=== PATIENT | female | born 1995 | race Caucasian/White ===

== ENCOUNTER 2019-03-17 11:40 | Emergency (ER) | payer OTHER ==
[~2019-03-17] VITALS: Ht 157.5 cm; Wt 72.0 kg
[2019-03-17] MEDS ORDERED: ACETAMINOPHEN 500 MG TABLET ONE (12:06)
--- NOTE | 2019-03-17 12:08 | NUR ---
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
[2019-03-17] MEDS ORDERED: KETOROLAC 30 MG/1 ML IVPush ONE (12:30)
[2019-03-17] MEDS ORDERED: SODIUM CHLORIDE 0.9% 1,000ML IVBOLUS ONE (12:30)
--- NOTE | 2019-03-17 12:51 | NUR ---
PT PRESENTING TO ER FOR WORSENING FEVER AND PAIN AFTER TAKING ABX FOR RECENT DX OF STREP. CURRENTLY TAKING CEPHDINER SINCE SUNDAY. CONNECTED TO ALL MONITORING, TACHY HR, FEVER 103, RAPID RESP RATE. IV PLACED, BLOOD CULTURES X2 DRAWN WITH LABS, FLUIDS STARTED PER DEC. MOTHER AT BEDSIDE. CALL LIGHT WITHIN REACH.
[2019-03-17 12:59] LABS: BASOPHILS % (AUTO) 0 % (0-1); EOSINOPHILS % (AUTO) 0 % (1-7); LYMPHOCYTES # (AUTO) 0.73 x10^3/uL (1-3.4); LYMPHOCYTES % (AUTO) 7 % (22-44); MD NO; MEAN CORPUSCULAR HEMOGLOBIN 29.3 pg (27.0-34.8); MEAN CORPUSCULAR HGB CONC 33.7 g/dL (32.4-35.8); MEAN PLATELET VOLUME 8.7 fL (7.4-10.4); MONOCYTES # (AUTO) 0.82 x10^3/uL (0.2-0.8); MONOCYTES % (AUTO) 8 % (2-9); NEUTROPHILS # (AUTO) 9.36 x10^3/uL (1.8-6.8); NEUTROPHILS % (AUTO) 86 % (42-75); PLATELET COUNT 224 x10^3/uL (130-400); RED BLOOD COUNT 4.45 x10^6/uL (3.82-5.3); RED CELL DISTRIBUTION WIDTH 13.2 % (9.6-15.2)
[2019-03-17 13:05] LABS: ALBUMIN 3.6 g/dL (3.4-5.0); ANION GAP 11 mmol/L (5-15); CALCIUM 8.8 mg/dL (8.5-10.1); CHLORIDE 100 mmol/L (98-107)
[2019-03-17] MEDS ORDERED: KETOROLAC 30 MG/1 ML ONE (13:05)
[2019-03-17 13:13] LABS: CREATININE 0.89 mg/dL (0.55-1.02)
--- NOTE | 2019-03-17 13:39 | NUR ---
TAKEN TO CT
--- NOTE | 2019-03-17 14:17 | NUR ---
UA COLLECTED AND SENT TO LAB. VSS, TEMP DECREASING PT STATES FEELING BETTER.
[2019-03-17 14:31] LABS: MICROSCOPIC AUTO
[2019-03-17 14:36] LABS: CULTURE INDICATED? NO
--- NOTE | 2019-03-17 14:49 | NUR ---
ALL RESULTS BACK AT THIS TIME, CHART UP FOR RECHECK
[2019-03-17] MEDS ORDERED: CEFTRIAXONE PMX 1GM/50ML 50 ML IV ONE (15:00)
[2019-03-17] MEDS ORDERED: DEXAMETHASONE 4 MG/ML, 1ML IVPush ONE (15:00)
[2019-03-17] MEDS ORDERED: DEXAMETHASONE 4 MG/ML, 1ML ONE (15:05)
[2019-03-17] MEDS ORDERED: CEFTRIAXONE PMX 1GM/50ML 50 ML ONE (15:05)
--- NOTE | 2019-03-17 15:13 | NUR ---
ORDERS RECEIVED FOR MEDS, MEDICATED PER DEC, ABX STARTED BLOOD CULTURES DRAWN PRIOR TO ADMIN. NADN. CALL LIGHT WITHIN REACH. PT TO BE DCd AFTER MEDS GIVEN
[2019-03-17 15:14] VITALS: BP 106/52
== END 2019-03-17 15:40 | disposition home or self-care (01) ==
LOC: ED 15:12
DX: J03.00 Acute streptococcal tonsillitis, unspecified (principal)
CPT/HCPCS: 36415; 70491; 71046; 80048; 81001; 82040; 83605; 84703; 85025; 86308; 87040; 96365; 96375; 99284; J0696; J1100; J1885; J7030

== ENCOUNTER 2019-06-04 05:54 | Day surgery (SDC) | payer OTHER ==
[~2019-06-04] VITALS: Ht 158.8 cm; Wt 71.0 kg
[2019-06-04] MEDS ORDERED: LACTATED RINGERS 1,000 ML IV SCH (06:21)
[2019-06-04] MEDS ORDERED: APREPITANT 40 MG CAPSULE PO ONE (06:30)
[2019-06-04] MEDS ORDERED: LIDOCAINE-MPF 1%, 2ML INFIL ONE (06:30)
[2019-06-04 06:37] VITALS: BP 114/74
[2019-06-04 06:38] LABS: HCG UR SG 1.021 (1.003-1.030)
[2019-06-04] MEDS ORDERED: FENTANYL PF 100 MCG/2ML ONE ×2 (06:54→08:09)
[2019-06-04] MEDS ORDERED: MIDAZOLAM 1 MG/ML, 2ML ONE (06:55)
[2019-06-04] MEDS ORDERED: PROPOFOL 10 MG/ML, 20ML ONE (06:55)
[2019-06-04] MEDS ORDERED: ROCURONIUM 10MG/ML,5ML ONE (06:59)
[2019-06-04] MEDS ORDERED: PHENYLEPHRINE 10 MG/ML ONE (07:00)
[2019-06-04] MEDS ORDERED: MONT5TAB9 PO (07:03)
[2019-06-04] MEDS ORDERED: EPHEDRINE 50 MG/ML, 1ML ONE (07:04)
[2019-06-04] MEDS ORDERED: EPINEPHRINE 1 MG/ML, 1ML ONE (07:05)
[2019-06-04] MEDS ORDERED: BUPIVACAINE/PF 0.25% ONE (07:05)
[2019-06-04] MEDS ORDERED: FLUMAZENIL 0.1 MG/1 ML, 5ML ONE (07:51)
[2019-06-04] MEDS ORDERED: HYDROcodone/APAP 7.5-325MG/15ML UDC ONE (08:09)
[2019-06-04] MEDS: FENTANYL PF 100 MCG/2ML IV PRN ×2 (08:12→08:17)
[2019-06-04] MEDS ORDERED: MEPERIDINE/PF 25MG/0.5ML IVPush PRN (08:30)
[2019-06-04] MEDS ORDERED: OXYcodone 5 MG/5 ML ORAL.SOL UDC PO PRN (08:30)
[2019-06-04] MEDS ORDERED: HYDROmorphone 2 MG/ML, 1ML IVPush PRN (08:30)
[2019-06-04] MEDS ORDERED: MORPHINE SULFATE 4 MG/ML, 1ML IVPush PRN (08:30)
[2019-06-04] MEDS ORDERED: HYDROcodone/APAP 7.5-325MG/15ML UDC PO PRN (08:30)
== END 2019-06-04 10:05 | disposition home or self-care (01) ==
LOC: OUT 05:54
PROVIDERS: ATTEND Otolaryngology
DX: J03.90 Acute tonsillitis, unspecified (principal)
CPT/HCPCS: 42826; 81025; 88304; J0171; J2250; J2370; J2704; J3010; J3490; J7120; J8501